=== PATIENT | female | born 2000 | race Asian ===

== ENCOUNTER 2024-06-21 06:40 | Outpatient (REF) | payer OTHER, SELFPAY ==
--- NOTE | ~2024-06-21 | US_ITS ---
EXAMINATION: US PELVIS CLINICAL INFORMATION: Irregular menses. COMPARISON: None available. TECHNIQUE: Ultrasound of the pelvis is performed using both transabdominal and transvaginal transducers along with Doppler. Transvaginal imaging is performed due to inadequate visualization transabdominally. FINDINGS: Uterus: The uterus is in retroversion flexion and measures 8 x 5 x 6 cm. The double wall endometrial thickness is 12 mm. The uterus is smooth in contour and has normal myometrial echogenicity. No visible fibroid. Adnexa: Both ovaries are visualized. There is normal color flow to the adnexa. There is no ovarian torsion. There is no pelvic ascites or fluid collection. Right ovary measures 4 x 2 x 3 cm. Volume: 11 cc. Scattered follicles. Left ovary measures 3 x 2 x 2 cm. Volume: 7 cc. Scattered follicles. US/US pelvic and transvaginal IMPRESSION: 12 mm thickness endometrial stripe. No ovarian torsion.. Uterus is in retroversion flexion position which could be seen patients with endometriosis. Electronically signed by: Chester Carrero MD 06/21/2024 03:50 PM EDT
== END 2024-06-21 06:41 | disposition home or self-care (01) ==
LOC: HO.UMASIMG 06:40
PROVIDERS: Visit Provider Nurse Practitioner Women's Health
DX: N92.6 Irregular menstruation, unspecified (principal)
CPT/HCPCS: 76830; 76856

== ENCOUNTER → 2024-06-21 13:30 | Outpatient (BNV) | payer OTHER, SELFPAY | PROVIDERS: Visit Provider Radiology Diagnostic Radiology | DX: N93.8 Other specified abnormal uterine and vaginal bleeding (principal) | CPT/HCPCS: 76830; 76856 ==